=== PATIENT | male | born 1970 ===

== ENCOUNTER 2022-05-18 06:42 | Outpatient (CLI) | payer OTHER | END 2022-05-18 07:08 | disposition home or self-care (01) | LOC: LAB 06:42 | DX: U07.1 COVID-19 (principal); B34.1 Enterovirus infection, unspecified; I11.9 Hypertensive heart disease without heart failure; E78.2 Mixed hyperlipidemia; R00.2 Palpitations ==

== ENCOUNTER → 2022-05-18 | Outpatient (CLI) | payer OTHER | END | disposition home or self-care (01) | LOC: NUCLEAR 07:00 | PROVIDERS: ATTEND Internal Medicine Cardiovascular Disease | DX: I25.10 Atherosclerotic heart disease of native coronary artery without angina pectoris (principal); I11.9 Hypertensive heart disease without heart failure; R00.2 Palpitations | CPT/HCPCS: 78452; 93017; 93306; A9500 ==